=== PATIENT | male | born 1965 | race Caucasian/White ===

== ENCOUNTER 2020-12-05 15:06 | Inpatient (IN) | payer BC ==
[2020-12-05 17:09] LABS: Glucose,Whole Blood 203 mg/dL (75-99)
[2020-12-05] MEDS ORDERED: LORazepam 2 MG/ML INJ IV PRN ×3 (17:20)
[2020-12-05] MEDS ORDERED: INSULIN ASPART (NovoLOG) 100 UNIT/ML VIAL SQ SCH (17:30)
[2020-12-05] MEDS ORDERED: ACETAMINOPHEN TAB 325 MG TAB PO PRN (19:35)
[2020-12-05 20:38] LABS: Glucose,Whole Blood 193 mg/dL (75-99)
[2020-12-05] MEDS: FUROSEMIDE 10 MG/ML 4 ML VIAL IV SCH (21:14)
[2020-12-05] MEDS: HEPARIN SODIUM,PORCINE 5,000 UNIT/ML 1 ML VIAL SQ SCH (21:14)
[2020-12-05] MEDS: INSULIN ASPART (NovoLOG) 100 UNIT/ML VIAL SQ SCH (21:15)
--- NOTE | 2020-12-06 00:09 | P.HPIM ---
History of Present Illness H&P Date: 12/05/20 Chief Complaint: SOB Patient is a 55-year-old male with a known history of hypertension, diabetes type 2 currently not taking any medications., Daily alcohol use and weekly marijuana use initially presented to [facility] with the complaints of worsening shortness of breath for the past 1 week. Due to complaints of shortness of breath patient was instructed to get COVID-19 test by his workplace, which was found to be negative. Patient has been having worsening s ymptoms and presents to ER. No complaints of fever or chills. Patient does have cough without sputum production. No headache or dizziness lightheadedness. No chest pain. Patient does have increasing leg swelling. Chest x-ray showed mild cardiomegaly and findings suggestive of CHF. proBNP 46238 Troponin x1 - Lactic acid 2.8, BUN 18 and creatinine 1.0. Echocardiogram showed EF 30 to 35%. Due to new onset CHF and reduced ejection fraction patient was transferred to [facility] for further evaluation. Review of Systems Constitutional: Patient denies any fever or chills . No generalized weakness or weight loss. Abdomen: Patient denied nausea vomiting and diarrhea and abdominal pain. Cardiovascular: Patient does shortness of breath and leg swelling. No chest pain. No palpitations.. Respiratory: patient denied any cough or sputum production. No shortness of breath Neurologic: Patient denied any numbness or tingling headache. Musculoskeletal: Patient denies any complaints of joint swelling or deformity. Skin: Negative Psychiatric: Negative Endocrine: No heat or cold intolerance. No recent weight gain. Genitourinary: No dysuria or hematuria. All other 14 point ROS negative except the above Past Medical History Past Medical History: Diabetes Mellitus, Hypertension Additional Past Medical History / Comment(s): palpitations History of Any Multi-Drug Resistant Organisms: None Reported Past Surgical History: No Surgical Hx Reported Past Anesthesia/Blood Transfusion Reactions: No Reported Reaction Past Psychological History: No Psychological Hx Reported Smoking Status: Current every day smoker Past Alcohol Use History: Abuse, Daily Additional Past Alcohol Use History / Comment(s): 6-12 beers/night Past Drug Use History: Marijuana Additional Drug Use History / Comment(s): marijuan weekly - Past Family History Mother Family Medical History: No Reported History Father Family Medical History: No Reported History Medications and Allergies Home Medications Medication Instructions Recorded Confirmed Type No Known Home Medications 12/05/20 12/05/20 History Allergies Allergy/AdvReac Type Severity Reaction Status Date / Time No Known Allergies Allergy Verified 12/05/20 18:33 Physical Exam Vitals: Vital Signs Temp Pulse Resp BP Pulse Ox 12/05/20 20:00 98.1 F 88 16 145/81 94 L 12/05/20 16:55 98.4 F 89 18 142/77 95 Intake and Output 12/05/20 12/05/20 12/06/20 14:59 22:59 06:59 Other: Voiding Method Toilet Urinal Weight 72.575 kg PHYSICAL EXAMINATION: Patient is lying in the bed comfortably, no acute distress, awake alert and oriented.. HEENT: Normocephalic. Neck is supple. Pupils reactive. Nostrils clear. Oral cavity is moist. Ears reveal no drainage. Neck reveals no JVD, carotid bruits, or thyromegaly. CHEST EXAMINATION: Trachea is central. Symmetrical expansion. Bibasilar crackles. No wheezing.. CARDIAC: Normal S1, S2 with no gallops. No murmurs ABDOMEN: Soft. Bowel sounds normal. No organomegaly. No abdominal bruits. Extremities: 2+ edema. No clubbing or cyanosis Neurologically awake, alert, oriented x3 with well-coordinated movements. No focal deficits noted Skin: No rash or skin lesions. Psychiatric: Coperative. Nonsuicidal Musculoskeletal: No joint swelling or deformity. Normal range of motion. Results Labs: Abnormal Lab Results - Last 24 Hours (Table) 12/05/20 12/05/20 Range/Units 17:01 20:37 POC Glucose (mg/dL) 203 H 193 H (75-99) mg/dL Thrombosis Risk Factor Assmnt - DVT/VTE Prophylaxis DVT/VTE Prophylaxis: Pharmacologic Prophylaxis ordered - Choose All That Apply Any of the Below Risk Factors Present?: Yes Each Factor Represents 1 point: Age 41-60 years, Heart failure (<1month), Swollen legs (current) Thrombosis Risk Factor Assessment Total Risk Factor Score: 3 Thrombosis Risk Factor Assessment Level: Moderate Risk Assessment and Plan Assessment: New onset acute systolic CHF. Alcohol abuse on daily basis Lactic acidosis resolved now Hypertension currently not taking any medications at home. Diabetes type 2 diet controlled Marijuana use DVT prophylaxis Heparin subcu Plan: Patient will be continued on telemetry monitoring. Started on IV Lasix 40 mg every 12 as blood pressure tolerates. Monitor renal function. Patient will be started on aspirin and lipid profile was ordered. Follow-up renal function and A1c level. Cardiology was consulted for evaluation. Continue with thiamine and multivitamins and alcohol withdrawal protocol. Time with Patient: Greater than 30
[2020-12-06 06:13] LABS: Glucose,Whole Blood 196 mg/dL (75-99)
[2020-12-06] MEDS: THIAMINE 100 MG TAB PO SCH ×2 (06:18→17:07)
[2020-12-06] MEDS: INSULIN ASPART (NovoLOG) 100 UNIT/ML VIAL SQ SCH ×4 (06:21→20:48)
[2020-12-06 07:29] LABS: Basophils % (A) 1 %; Eosinophils # (A) 0.2 k/uL (0-0.7); Eosinophils % (A) 2 %; HCT 34.1 % (39.0-53.0); HGB 11.1 gm/dL (13.0-17.5); Hypochromasia Slight; Lymphocytes # (A) 1.3 k/uL (1.0-4.8); Lymphocytes % (A) 17 %; MCH 27.6 pg (25.0-35.0); MCHC 32.6 g/dL (31.0-37.0); MCV 84.5 fL (80.0-100.0); Mean Platelet Volume 7.1; Monocytes # (A) 0.3 k/uL (0-1.0); Monocytes % (A) 4 %; Neutrophils % (A) 76 %; Platelet Count 354 k/uL (150-450); RBC 4.04 m/uL (4.30-5.90); WBC 7.9 k/uL (3.8-10.6)
[2020-12-06 07:40] LABS: African American GFR (CKD) >90 (>60 ml/min/1.73 sqM); Anion Gap 6 mmol/L; Blood Urea Nitrogen 21 mg/dL (9-20); Calcium 9.3 mg/dL (8.4-10.2); Carbon Dioxide 26 mmol/L (22-30); Chloride 107 mmol/L (98-107); Glucose 163 mg/dL (74-99); Non-African American GFR(CKD) 86 (>60 ml/min/1.73 sqM); Potassium 3.9 mmol/L (3.5-5.1); Sodium 139 mmol/L (137-145)
--- NOTE | 2020-12-06 07:50 | XR ---
EXAMINATION TYPE: XR chest 1V DATE OF EXAM: 12/06/2020 COMPARISON: NONE HISTORY: Congestive heart failure, shortness breath TECHNIQUE: Single frontal view of the chest is obtained. FINDINGS: Patient is rotated. Bibasilar increased attenuation is present, hemidiaphragms are obscure d. Heart size may be accentuated by rotation. No pneumothorax. Blunting the costophrenic angles. Inte rstitium is increased. IMPRESSION: Correlate for congestive heart failure and basilar effusions. Pneumonia not excluded. Fo llow-up recommended.
[2020-12-06 08:19] VITALS: RESP 18
[2020-12-06] MEDS: HEPARIN SODIUM,PORCINE 5,000 UNIT/ML 1 ML VIAL SQ SCH ×2 (08:19→19:47)
[2020-12-06] MEDS: FUROSEMIDE 10 MG/ML 4 ML VIAL IV SCH ×2 (08:19→19:47)
[2020-12-06] MEDS: ASPIRIN 81 MG PO SCH (08:19)
[2020-12-06 10:14] LABS: Cholesterol 164 mg/dL (<200); HDL Cholesterol 30 mg/dL (40-60); LDL Cholesterol,Calculated 110 mg/dL (0-99); Triglycerides 120 mg/dL (<150)
[2020-12-06] MEDS: LOSARTAN 25 MG TAB PO SCH (11:07)
[2020-12-06] MEDS: ATORVASTATIN 40 MG TAB PO SCH (11:07)
[2020-12-06] MEDS: METOPROLOL SUCCINATE (ER) 25 MG TAB.ER.24H PO SCH (11:07)
[2020-12-06 12:01] LABS: Glucose,Whole Blood 188 mg/dL (75-99)
--- NOTE | 2020-12-06 12:08 | P.CRDCN ---
History of Present Illness History of present illness: HISTORY OF PRESENTING ILLNESS This is a pleasant 55-year-old male past medical history significant for chronic nicotine dependence, daily excessive alcohol intake and marijuana use. 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 He follows with a primary care physician but states he hasn't seen recently. In the past he has been diagnosed with hypertension and diabetes however is not currently taking any medications. We have been asked to see in consultation for heart failure. He states for the previous one week he has been experiencing shortness of breath, orthopnea and PND. He has been unable to work or maintain his activities of daily living. She initially presented to [facility] where he underwent an echocardiogram revealing impaired LV systolic function with global LV hypokinesia with ejection fraction of 35-40%, severe mitral regurgitation, moderate tricuspid regurgitation and small pericardial effusion. He was initiated on IV diuretics and transferred here for further cardiac evaluation. DIAGNOSTICS EKG reveals sinus mechanism with PVCs flat T-wave in the high lateral leads and T-wave inversions anterior laterally. Telemetry tracings indicate this mechanism with no acute arrhythmias noted. Chest xray basilar effusions with blunting of the costophrenic angles and increased interstitium. Laboratory reviewed, WBC 7.9, hemoglobin 11.1, platelets 354, sodium 139, potassium 3.9, creatinine 0.99, troponin 0.33, NT proBNP 12,200, LDL 110 and HDL 30. He takes no daily medications. REVIEW OF SYSTEMS At the time of my exam: CONSTITUTIONAL: Denies fever or chills. CARDIOVASCULAR: Complains of shortness of breath, orthopnea and PND. Denies chest pain or palpitations. RESPIRATORY: Denies cough. GASTROINTESTINAL: Denies abdominal pain, diarrhea, constipation, nausea or vomiting. MUSCULOSKELETAL: Denies myalgias. NEUROLOGIC: Denies numbness, tingling, headacbe or weakness. ENDOCRINE: Denies fatigue, weight change, polydipsia or polyurina. GENITOURINARY: Denies burning, hematuria or urgency with micturation. HEMATOLOGIC: Denies history of anemia or bleeding. PHYSICAL EXAMINATION Blood pressure 121/83 heart rate 88 afebrile and maintaining oxygen saturation on room air. CONSTITUTIONAL: No apparent distress. Appears older than stated age. HEENT: Head is normocephalic. Pupils are equal, round. Sclerae anicteric. Mucous membranes of the mouth are moist. No JVD. No carotid bruit. CHEST EXAMINATION: Lungs are clear to auscultation. No chest wall tenderness is noted on palpation or with deep breathing. Diminished bilaterally. HEART EXAMINATION: Regular rate and rhythm. S1, S2 heard. Systolic ejection murmur at the base, no gallops or rub. ABDOMEN: Soft, nontender. Positive bowel sounds. EXTREMITIES: 2+ peripheral pulses, no lower extremity edema and no calf tender ness. NEUROLOGIC EXAMINATION: Patient is awake, alert and oriented x3. ASSESSMENT Acute systolic heart failure Hypertension Dyslipidemia Daily excessive alcohol intake Chronic nicotine dependence PLAN Continue IV diuresis. Document accurate intake and output along with daily weights. Follow renal function and electrolytes in the morning. Initiate atorvastatin 40 mg daily, losartan 25 mg daily and Toprol 25 mg daily. Continue aspirin 81 mg daily. At some point the patient will require cardiac catheterization to assess for underlying coronary artery disease. This can be scheduled as an outpatient once his breathing status is optimized. Further recommendations to follow based upon clinical course. Alcohol and smoking cessation recommended. Thank you kindly for this consultation. Nurse Practitioner note has been reviewed, I agree with a documented findings and plan of care. Patient was seen and examined. Past Medical History Past Medical History: Diabetes Mellitus, Hypertension Additional Past Medical History / Comment(s): palpitations History of Any Multi-Drug Resistant Organisms: None Reported Past Surgical History: No Surgical Hx Reported Past Anesthesia/Blood Transfusion Reactions: No Reported Reaction Past Psychological History: No Psychological Hx Reported Smoking Status: Current every day smoker Past Alcohol Use History: Abuse, Daily Additional Past Alcohol Use History / Comment(s): 6-12 beers/night Past Drug Use History: Marijuana Additional Drug Use History / Comment(s): marijuan weekly - Past Family History Mother Family Medical History: No Reported History Father Family Medical History: No Reported History Medications and Allergies Home Medications Medication Instructions Recorded Confirmed Type No Known Home Medications 12/05/20 12/05/20 History Allergies Allergy/AdvReac Type Severity Reaction Status Date / Time No Known Allergies Allergy Verified 12/05/20 18:33 Physical Exam Vitals: Vital Signs Temp Pulse Resp BP Pulse Ox 12/06/20 08:16 98.2 F 88 18 121/83 96 12/06/20 04:00 98.1 F 85 16 146/71 96 12/06/20 00:00 98.2 F 82 18 128/79 95 12/05/20 20:00 98.1 F 88 16 145/81 94 L 12/05/20 16:55 98.4 F 89 18 142/77 95 Intake and Output 12/05/20 12/06/20 12/06/20 22:59 06:59 14:59 Output Total 1300 Balance -1300 Output: Urine 1300 Other: Voiding Method Toilet Toilet Urinal # Voids 1 Weight 72.575 kg 79 kg Results 12/06/20 07:07 12/06/20 07:07 Cardiac Enzymes 12/06/20 Range/Units 07:07 Troponin I 0.033 (0.000-0.034) ng/mL CBC 12/06/20 Range/Units 07:07 WBC 7.9 (3.8-10.6) k/uL RBC 4.04 L (4.30-5.90) m/uL Hgb 11.1 L (13.0-17.5) gm/dL Hct 34.1 L (39.0-53.0) % Plt Count 354 (150-450) k/uL Comprehensive Metabolic Panel 12/06/20 Range/Units 07:07 Sodium 139 (137-145) mmol/L Potassium 3.9 (3.5-5.1) mmol/L Chloride 107 (98-107) mmol/L Carbon Dioxide 26 (22-30) mmol/L BUN 21 H (9-20) mg/dL Creatinine 0.99 (0.66-1.25) mg/dL Glucose 163 H (74-99) mg/dL Calcium 9.3 (8.4-10.2) mg/dL Current Medications Generic Name Dose Route Start Last Admin Trade Name Freq PRN Reason Stop Dose Admin Acetaminophen 650 mg 12/05/20 19:35 12/05/20 21:16 Acetaminophen Tab 325 Mg Tab PO 650 mg Q6HR PRN Administration Fever and/ or Mild Pain Aspirin 81 mg 12/06/20 09:00 12/06/20 08:19 Aspirin 81 Mg PO 81 mg DAILY KIYA Administration Furosemide 40 mg 12/05/20 21:00 12/06/20 08:19 Furosemide 10 Mg/Ml 4 Ml Vial IV 40 mg Q12HR KIYA Administration Heparin Sodium (Porcine) 5,000 unit 12/05/20 21:00 12/06/20 08:19 Heparin Sodium,Porcine 5,000 Unit/Ml 1 Ml Vial SQ 5,000 unit Q12HR KIYA Administration Insulin Aspart 0 unit 12/05/20 21:00 12/06/20 06:21 Insulin Aspart (Novolog) 100 Unit/Ml Vial SQ 2 unit ACHS KIYA Administration Protocol Lorazepam 1 mg 12/05/20 17:20 Lorazepam 2 Mg/Ml Inj IV Q2HR PRN CIWA 8 or 9 Lorazepam 1 mg 12/05/20 17:20 Lorazepam 2 Mg/Ml Inj IV Q1HR PRN CIWA 10 to 15 Lorazepam 2 mg 12/05/20 17:20 Lorazepam 2 Mg/Ml Inj IV 12/07/20 17:21 Q10M PRN CIWA 16 or higher Thiamine HCl 100 mg 12/06/20 07:30 12/06/20 06:18 Thiamine 100 Mg Tab PO 100 mg BID-W/MEALS KIYA Administration Intake and Output 12/05/20 12/06/20 12/06/20 22:59 06:59 14:59 Output Total 1300 Balance -1300 Output: Urine 1300 Other: Voiding Method Toilet Toilet Urinal # Voids 1 Weight 72.575 kg 79 kg 12/06/20 07:07 12/06/20 07:07
[2020-12-06 14:27] LABS: Hemoglobin A1C 7.3 % (4.0-6.0)
[2020-12-06 17:04] LABS: Glucose,Whole Blood 243 mg/dL (75-99)
[2020-12-06 20:44] LABS: Glucose,Whole Blood 175 mg/dL (75-99)
[2020-12-07 06:12] LABS: Glucose,Whole Blood 224 mg/dL (75-99)
[2020-12-07] MEDS: INSULIN ASPART (NovoLOG) 100 UNIT/ML VIAL SQ SCH ×2 (06:19→12:10)
[2020-12-07] MEDS: THIAMINE 100 MG TAB PO SCH (06:19)
[2020-12-07] MEDS: ATORVASTATIN 40 MG TAB PO SCH (08:49)
[2020-12-07] MEDS: ASPIRIN 81 MG PO SCH (08:49)
[2020-12-07] MEDS: LOSARTAN 25 MG TAB PO SCH (08:49)
[2020-12-07] MEDS: METOPROLOL SUCCINATE (ER) 25 MG TAB.ER.24H PO SCH (08:49)
[2020-12-07] MEDS: FUROSEMIDE 10 MG/ML 4 ML VIAL IV SCH (08:50)
[2020-12-07] MEDS: HEPARIN SODIUM,PORCINE 5,000 UNIT/ML 1 ML VIAL SQ SCH (08:50)
--- NOTE | 2020-12-07 10:50 | P.PN ---
Subjective Progress Note Date: 12/06/20 Principal diagnosis: New onset acute CHF Patient is a 55-year-old male with a known history of hypertension, diabetes type 2 currently not taking any medications., Daily alcohol use and weekly marijuana use initially presented to [facility] with the complaints of worsening shortness of breath for the past 1 week. Due to complaints of shortness of breath patient was instructed to get COVID-19 test by his workplace, which was found to be negative. Patient has been having worsening symptoms and presents to ER. No complaints of fever or chills. Patient does have cough without sputum production. No headache or dizziness lightheadedness. No chest pain. Patient does have increasing leg swelling. Chest x-ray showed mild cardiomegaly and findings suggestive of CHF. proBNP 68491 Troponin x1 - Lactic acid 2.8, BUN 18 and creatinine 1.0. Echocardiogram showed EF 30 to 35%. Due to new onset CHF and reduced ejection fraction patient was transferred to [facility] for further evaluation. 12/06/2020 Patient says that his breathing is better today. Currently being continued on IV Lasix and metoprolol, NILS inhibitor as were ordered. Cardiology is on board. 2-D echocardiogram report is pending. Otherwise patient is afebrile. Improved orthopnea. Patient is being monitored for alcohol withdrawal symptoms. A1c level is 7.3 and will be continued on sliding scale. Current medications reviewed. Objective - Vital Signs Vital signs: Vital Signs Temp 97.7 F 12/06/20 20:00 Pulse 86 12/06/20 20:00 Resp 18 12/06/20 20:00 BP 131/79 12/06/20 20:00 Pulse Ox 98 12/06/20 20:00 Intake & Output 12/06/20 12/06/20 12/07/20 06:59 18:59 06:59 Intake Total 486 475 Output Total 1300 1000 Balance -1300 486 -525 Weight 79 kg Intake: Oral 486 475 Output: Urine 1300 1000 Other: Voiding Method Toilet Toilet Toilet # Voids 1 - Exam PHYSICAL EXAMINATION: Patient is lying in the bed comfortably, no acute distress, awake alert and oriented.. HEENT: Normocephalic. Neck is supple. Pupils reactive. Nostrils clear. Oral cavity is moist. Ears reveal no drainage. Neck reveals no JVD, carotid bruits, or thyromegaly. CHEST EXAMINATION: Trachea is central. Symmetrical expansion. Bibasilar minimal crackles. No wheezing. Lung romeo clear to auscultation and percussion. CARDIAC: Normal S1, S2 with no gallops. No murmurs ABDOMEN: Soft. Bowel sounds normal. No organomegaly. No abdominal bruits. Extremities: reveal no edema. No clubbing or cyanosis Neurologically awake, alert, oriented x3 with well-coordinated movements. No focal deficits noted Skin: No rash or skin lesions. Psychiatric: Coperative. Nonsuicidal Musculoskeletal: No joint swelling or deformity. Normal range of motion. - Labs CBC & Chem 7: 12/06/20 07:07 12/06/20 07:07 Labs: Abnormal Lab Results - Last 24 Hours (Table) 12/06/20 12/06/20 12/06/20 Range/Units 06:12 07:07 07:07 RBC 4.04 L (4.30-5.90) m/uL Hgb 11.1 L (13.0-17.5) gm/dL Hct 34.1 L (39.0-53.0) % BUN 21 H (9-20) mg/dL Glucose 163 H (74-99) mg/dL POC Glucose (mg/dL) 196 H (75-99) mg/dL Hemoglobin A1c (4.0-6.0) % LDL Cholesterol, Calc (0-99) mg/dL HDL Cholesterol (40-60) mg/dL 12/06/20 12/06/20 12/06/20 Range/Units 07:07 07:07 11:52 RBC (4.30-5.90) m/uL Hgb (13.0-17.5) gm/dL Hct (39.0-53.0) % BUN (9-20) mg/dL Glucose (74-99) mg/dL POC Glucose (mg/dL) 188 H (75-99) mg/dL Hemoglobin A1c 7.3 H (4.0-6.0) % LDL Cholesterol, Calc 110 H (0-99) mg/dL HDL Cholesterol 30 L (40-60) mg/dL 12/06/20 12/06/20 Range/Units 16:52 20:42 RBC (4.30-5.90) m/uL Hgb (13.0-17.5) gm/dL Hct (39.0-53.0) % BUN (9-20) mg/dL Glucose (74-99) mg/dL POC Glucose (mg/dL) 243 H 175 H (75-99) mg/dL Hemoglobin A1c (4.0-6.0) % LDL Cholesterol, Calc (0-99) mg/dL HDL Cholesterol (40-60) mg/dL Assessment and Plan Assessment: New onset acute systolic CHF. Alcohol abuse on daily basis Lactic acidosis resolved now Hypertension currently not taking any medications at home. Diabetes type 2 diet controlled A1c 7.3 Marijuana use DVT prophylaxis Heparin subcu Plan: Patient will be continued on telemetry monitoring. Started on IV Lasix 40 mg every 12 as blood pressure tolerates. Monitor renal function. Beta blockers and nils inhibitors were added. Patient was started on aspirin and lipid profile showed LDL 110. Follow-up renal function.. Cardiology is following.. Continue with thiamine and multivitamins and alcohol withdrawal protocol. Time with Patient: Greater than 30
[2020-12-07 11:41] VITALS: BP 127/74; PULSE 81; TEMP 98.3
[2020-12-07 11:43] LABS: Calcium 9.2 mg/dL (8.4-10.2); Potassium 4.1 mmol/L (3.5-5.1)
[2020-12-07 11:58] LABS: Glucose,Whole Blood 177 mg/dL (75-99)
[2020-12-07] MEDS ORDERED: LOSARTAN 25 MG TAB PO STA (12:56)
[2020-12-07] MEDS ORDERED: METOPROLOL SUCCINATE (ER) 25 MG TAB.ER.24H PO STA (12:57)
--- NOTE | 2020-12-07 12:59 | P.PN ---
Subjective HISTORY OF PRESENTING ILLNESS This is a pleasant 55-year-old male past medical history significant for chronic nicotine dependence, daily excessive alcohol intake and marijuana use. 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 He is seen and examined sitting up in bed in no acute distress. Overall he doesn't feel as though his breathing has improved very much. He denies symptoms of chest pain, dizziness or palpitations. 24- hour urine output is 2000 mL. Blood pressure 141/76 heart rate 84 afebrile maintaining oxygen saturation on room air. PHYSICAL EXAMINATION CONSTITUTIONAL: No apparent distress. Appears older than stated age. HEENT: Head is normocephalic. Pupils are equal, round. Sclerae anicteric. Mucous membranes of the mouth are moist. No JVD. No carotid bruit. CHEST EXAMINATION: Lungs are clear to auscultation. No chest wall tenderness is noted on palpation or with deep breathing. Diminished bilaterally. HEART EXAMINATION: Regular rate and rhythm. S1, S2 heard. Systolic ejection murmur at the base, no gallops or rub. EXTREMITIES: 2+ peripheral pulses, no lower extremity edema and no calf tenderness. ASSESSMENT Acute systolic heart failure Hypertension Dyslipidemia Daily excessive alcohol intake Chronic nicotine dependence PLAN Transition to oral diuretics 40 mg by mouth twice a day, increase losartan to 50 mg daily and Toprol to 50 mg daily. Add small dose of Aldactone 12.5 mg daily. Patient will require cardiac catheterization at some point. This can be scheduled as an outpatient. Nurse Practitioner note has been reviewed, I agree with a documented findings and plan of care. Patient was seen and examined. Objective - Vital Signs Vital signs: Vital Signs Temp 98.0 F 12/07/20 08:47 Pulse 84 12/07/20 08:47 Resp 18 12/07/20 08:47 BP 141/76 12/07/20 08:47 Pulse Ox 97 12/07/20 08:47 Intake & Output 12/06/20 12/07/20 12/07/20 18:59 06:59 18:59 Intake Total 486 475 180 Output Total 1999 Balance 494 -8348 180 Weight 73.1 kg Intake: Oral 486 475 180 Output: Urine 1999 Other: Voiding Method Toilet Toilet Toilet # Voids 2 1 # Bowel Movements 0 - Labs CBC & Chem 7: 12/06/20 07:07 12/07/20 11:05 Labs: Abnormal Lab Results - Last 24 Hours (Table) 12/06/20 12/06/20 12/06/20 Range/Units 07:07 11:52 16:52 POC Glucose (mg/dL) 188 H 243 H (75-99) mg/dL Hemoglobin A1c 7.3 H (4.0-6.0) % 12/06/20 12/07/20 Range/Units 20:42 06:10 POC Glucose (mg/dL) 175 H 224 H (75-99) mg/dL Hemoglobin A1c (4.0-6.0) %
[2020-12-07] MEDS ORDERED: SPIRONOLACTONE 25 MG TAB PO SCH (13:00)
[2020-12-07] MEDS ORDERED: FUROSEMIDE 40 MG TAB PO SCH (16:00)
[2020-12-08] MEDS ORDERED: LOSARTAN 50 MG TAB PO SCH (09:00)
[2020-12-08] MEDS ORDERED: METOPROLOL SUCCINATE (ER) 50 MG TAB.ER.24H PO SCH (09:00)
== END 2020-12-07 16:06 | disposition home or self-care (01) | DRG 291 ==
LOC: 3SCARD 16:54
PROVIDERS: ADMIT Internal Medicine; ATTEND Internal Medicine
DX: I11.0 Hypertensive heart disease with heart failure (principal); I50.21 Acute systolic (congestive) heart failure; I31.3 Pericardial effusion (noninflammatory); E87.2 Acidosis; I49.3 Ventricular premature depolarization; F17.200 Nicotine dependence, unspecified, uncomplicated; I08.1 Rheumatic disorders of both mitral and tricuspid valves; F12.90 Cannabis use, unspecified, uncomplicated; F10.10 Alcohol abuse, uncomplicated; E78.5 Hyperlipidemia, unspecified; E11.9 Type 2 diabetes mellitus without complications
CPT/HCPCS: 71045; 80048; 80061; 83036; 83605; 83880; 84484; 85025

== ENCOUNTER → 2020-12-23 | Outpatient (CLI) | payer BC ==
--- NOTE | 2020-12-23 11:38 | CT ---
EXAMINATION TYPE: CT chest abdomen w con DATE OF EXAM: 12/23/2020 COMPARISON: None HISTORY: Left renal mass; Staging for renal cancer CT DLP: 914 mGycm, Automated exposure control for dose reduction was used. CONTRAST: Performed injected with 50 ml mL of Isovue 300. TECHNIQUE: Axial images were obtained at 5 mm thick sections. Reconstructed images are reviewed on [facility] computer in the coronal plane. FINDINGS: CT CHEST: Portion of the thyroid visualized is normal. No suspicious lung nodules or focal infiltrates are present. No enlarged mediastinal or hilar adenopathy is evident. The ascending aorta diameter at the level o f the main pulmonary artery is 3.4 cm. The main pulmonary artery diameter at the bifurcation is 2.9 cm. There is a small hiatal hernia. CT abdomen: Liver and spleen and normal density without discrete masses or cysts. The gallbladder is unremarkable . Abdominal aorta and inferior vena cava are normal. There is no contrast in the distal inferior vena cava which limits evaluation for thrombus. Renal vein thrombus extending approximately 3.2 cm from t he hilum appears to be present. There is some asymmetry of the contrast excretion on the left compare d to the right. Pancreas is normal. The adrenal glands are normal. Gallbladder is unremarkable. Loops of bowel with o ral contrast appear unremarkable. Fecal debris is within the colon. Right kidney is normal without ma sses cysts or hydronephrosis. No suspicious lytic or sclerotic lesions are evident. No expansile lesi ons within the osseous structures are evident. Inferior pole left renal mass is evident estimated to measure 9.3 x 8.4 cm in size. IMPRESSIONS: 1. 9.3 x 8.4 cm inferior pole left renal mass compatible with patient's renal cell carcinoma. 2. There appears to be thrombus within the left renal vein extending approximately 3.2 cm from the re nal hilum. This does not appear to cross the midline. 3. No suspicious changes to suggest distal metastatic lesions.
--- NOTE | 2020-12-23 14:19 | NM ---
EXAMINATION TYPE: NM bone scan whole body DATE OF EXAM: 12/23/2020 COMPARISON: NONE HISTORY: D41.02 L renal mass Delayed whole-body scanning was performed following the injection of 25 mCi Tc 99m MDP. Images acqui red 4 hours post injection. FINDINGS: No evidence for intense radiotracer accumulation throughout the visualized axial and appendicular ske leton. IMPRESSION: No scintigraphic evidence to suggest metastatic disease to the osseous structures at this time.
== END | disposition home or self-care (01) ==
LOC: RADCTMAIN 08:34
PROVIDERS: ATTEND Urology
DX: C64.2 Malignant neoplasm of left kidney, except renal pelvis (principal); D41.02 Neoplasm of uncertain behavior of left kidney
CPT/HCPCS: 82565; 84520; 71260; 74160; 36415; 78306; A9503; Q9967

== ENCOUNTER → 2021-01-07 | Outpatient (CLI) | payer BC ==
[2021-01-07 14:18] LABS: ALT 15 U/L (4-49); AST 12 U/L (17-59); African American GFR (CKD) >90 (>60 ml/min/1.73 sqM); Albumin 3.5 g/dL (3.5-5.0); Alkaline Phosphatase 130 U/L (38-126); Anion Gap 9 mmol/L; Blood Urea Nitrogen 16 mg/dL (9-20); Calcium 9.1 mg/dL (8.4-10.2); Carbon Dioxide 24 mmol/L (22-30); Chloride 102 mmol/L (98-107); Glucose 359 mg/dL (74-99); Non-African American GFR(CKD) 85 (>60 ml/min/1.73 sqM); Potassium 4.8 mmol/L (3.5-5.1); Sodium 135 mmol/L (137-145); Total Bilirubin 0.3 mg/dL (0.2-1.3); Total Protein 6.4 g/dL (6.3-8.2)
[2021-01-07 14:29] LABS: Anisocytosis Slight; Basophils % (A) 0 %; Eosinophils # (A) 0.2 k/uL (0-0.7); Eosinophils % (A) 2 %; HCT 29.7 % (39.0-53.0); HGB 9.7 gm/dL (13.0-17.5); Lymphocytes # (A) 1.2 k/uL (1.0-4.8); Lymphocytes % (A) 15 %; MCH 28.3 pg (25.0-35.0); MCHC 32.6 g/dL (31.0-37.0); MCV 86.6 fL (80.0-100.0); Mean Platelet Volume 7.2; Monocytes # (A) 0.4 k/uL (0-1.0); Monocytes % (A) 5 %; Neutrophils # (A) 5.9 k/uL (1.3-7.7); Neutrophils % (A) 77 %; Platelet Count 277 k/uL (150-450); RBC 3.43 m/uL (4.30-5.90); RDW 16.3 % (11.5-15.5); WBC 7.8 k/uL (3.8-10.6)
[2021-01-07 14:43] LABS: Appearance,Urine Clear (Clear); Bilirubin,Urine Negative (Negative); Blood,Urine Moderate (Negative); Color,Urine Light Yellow; Glucose,Urine (UA) 4+ (Negative); Hyaline Casts,Urine 1 /lpf (0-2); Ketones,Urine Negative (Negative); Leukocyte Esterase,Urine Small (Negative); Mucus,Urine Rare /hpf; Nitrite,Urine Negative (Negative); Protein,Urine 1+ (Negative); RBC,Urine 72 /hpf (0-5); Specific Gravity,Urine 1.016 (1.001-1.035); Squamous Epithelial Cell,Urine <1 /hpf (0-4); Urobilinogen,Urine <2.0 mg/dL (<2.0); WBC,Urine 20 /hpf (0-5)
== END | disposition home or self-care (01) ==
LOC: LABPAT 12:42
PROVIDERS: ATTEND Urology
DX: Z01.818 Encounter for other preprocedural examination (principal); E11.9 Type 2 diabetes mellitus without complications; D41.02 Neoplasm of uncertain behavior of left kidney; R31.29 Other microscopic hematuria
CPT/HCPCS: 36415; 80053; 81001; 85025; 87086

== ENCOUNTER 2021-01-14 13:00 | Inpatient (IN) | payer BC ==
[2021-01-12 10:31] VITALS: BMI 22.4
--- NOTE | 2021-01-27 18:44 | P.GSHP ---
History of Present Illness H&P Date: 01/27/21 55 yo male who had hematuria and year ago. He had a ct scan then and was told to see a urologist but never did. He had gross hematuria recently. Repeat ct scan shows a 9 cm mass in the left kidney. THere may be regional adenopathy. He underwent a metastatic w/u that was negative. There appears to be tumor in the left renalvein but the cava is clear. He comes for a left radical nephrectomy The risks complications and alternatives have been discussed. - Constitutional Constitutional: Denies chills, Denies fever - EENT Eyes: denies blurred vision, denies pain Ears, nose, mouth and throat: Denies headache, Denies sore throat - Cardiovascular Cardiovascular: Denies chest pain, Denies shortness of breath - Respiratory Respiratory: Denies cough, Denies 7 - Gastrointestinal Gastrointestinal: Denies abdominal pain, Denies diarrhea, Denies nausea, Denies vomiting - Genitourinary (Female) Genitourinary: Denies dysuria, Denies hematuria - Genitourinary (Male) Genitourinary: Denies dysuria, Denies hematuria - Musculoskeletal Musculoskeletal: Denies myalgias - Integumentary Integumentary: Denies pruritus, Denies rash - Neurological Neurological: Denies numbness, Denies weakness - Psychiatric Psychiatric: Denies anxiety, Denies depression - Endocrine Endocrine: Denies fatigue, Denies weight change Past Medical History Past Medical History: Heart Failure, Diabetes Mellitus, GERD/Reflux, Hypertension Additional Past Medical History / Comment(s): palpitations, hx migraines, hx kidney stones. left kidney cancer, "had black uriine Nov 2020", had blood in urine 01/18/21. (none currently) History of Any Multi-Drug Resistant Organisms: None Reported Past Surgical History: No Surgical Hx Reported Past Anesthesia/Blood Transfusion Reactions: No Reported Reaction Additional Past Anesthesia/Blood Transfusion Reaction / Comment(s): never had anesthesia Smoking Status: Current every day smoker - Past Family History Mother Family Medical History: No Reported History Father Family Medical History: No Reported History Medications and Allergies Home Medications Medication Instructions Recorded Confirmed Type Furosemide [Lasix] 40 mg PO BID@0900,1600 #60 tab 12/07/20 01/23/21 Rx Aspirin 81 mg PO W/SUPPER 01/12/21 01/23/21 History Atorvastatin [Lipitor] 40 mg PO W/SUPPER 01/12/21 01/23/21 History Losartan [Cozaar] 50 mg PO W/SUPPER 01/12/21 01/23/21 History Metoprolol Succinate (ER) [Toprol 50 mg PO W/SUPPER 01/12/21 01/23/21 History XL] Spironolactone [Aldactone] 12.5 mg PO W/SUPPER 01/12/21 01/23/21 History metFORMIN HCL [Glucophage Xr] 500 mg PO W/SUPPER 01/12/21 01/23/21 History Allergies Allergy/AdvReac Type Severity Reaction Status Date / Time No Known Allergies Allergy Verified 01/12/21 10:16 Surgical - Exam - General well developed, well nourished, no distress - Eyes PERRL - ENT no hearing loss - Neck no masses, trachea midline - Respiratory normal expansion, normal respiratory effort - Cardiovascular Rhythm: regular - Abdomen Abdomen: soft, non tender - Genitourinary normal penis with no external lesions, testicles present - Integumentary no rash, no growths - Neurologic normal coordination, normal sensation - Musculoskeletal normal gait, normal posture - Psychiatric oriented to time, oriented to person, oriented to place, speech is normal, memory intact Results - Imaging CT scan - abdomen: report reviewed, image reviewed CT scan - pelvis: report reviewed, image reviewed Assessment and Plan Assessment: Impression: Left renal cell carcinoma. MUltiple medical illnesses Plan: Left radical nephrectomy
[2021-01-28] MEDS ORDERED: LIDOCAINE 1% (10MG/ML) FOR IV START INTRADERMA PRN (05:45)
[2021-01-28] MEDS ORDERED: ONDANSETRON 4 MG/2 ML VIAL IVP ONE ×2 (05:45→12:50)
[2021-01-28] MEDS ORDERED: HYDROmorphone 0.5 MG/0.5 ML SYRINGE IVP PRN (05:45)
[2021-01-28] MEDS ORDERED: DEXAMETHASONE SOD PHOSPHATE 4 MG/ML 1 ML VIAL IV ONE (05:45)
[2021-01-28] MEDS ORDERED: MIDAZOLAM 2 MG/2 ML VIAL IV PRN (07:00)
[2021-01-28] MEDS ORDERED: fentaNYL (PF) 50 MCG/ML 2 ML AMP IVP PRN (07:00)
[2021-01-28 08:58] LABS: Glucose,Whole Blood 200 mg/dL (75-99)
[2021-01-28] MEDS: LACTATED RINGERS 1,000 ML IV SCH ×2 (08:58→19:12)
[2021-01-28] MEDS ORDERED: NALOXONE 0.4 MG/ML 1 ML VIAL IV PRN (09:50)
[2021-01-28] MEDS ORDERED: ROPIVACAINE 250 MG, HYDROMORPHONE (PF) 5 MG in SODIUM CHLORIDE 0.9% 200 ML EPIDURAL PRN (09:50)
[2021-01-28] MEDS ORDERED: diphenhydrAMINE 50 MG/ML 1 ML VIAL IVP PRN (09:50)
--- NOTE | 2021-01-28 09:53 | P.ANPRN ---
Procedure Note - Anesthesia - Epidural/Spinal Epidural Continuous Time Out Performed: Yes Date of Procedure: 01/28/21 Procedure Start Time: : Procedure Stop Time: : Location of Patient: PreOp Indication: Requested by Surgeon Sedation Type: Sedate with meaningful contact maintained Preparation: Sterile Dressing Position: Sitting Catheter: Indwelling Needle Guage: 18 Injectate: Test Dose Lidocaine1.5% w/1:200,000 epi Blood Aspirated: No Pain Paresthesia on Injection Noted: No Events: Uneventful and Well Tolerated
[2021-01-28] MEDS ORDERED: GLYCOPYRROLATE 0.2 MG/ML 2 ML VIAL ONE (09:58)
[2021-01-28] MEDS ORDERED: SUCCINYLCHOLINE CHLORIDE 100 MG/5 ML SYR IV ONE (09:58)
[2021-01-28] MEDS ORDERED: ROCURONIUM 10 MG/ML (5 ML VIAL) IV ONE (09:58)
[2021-01-28] MEDS ORDERED: NEOSTIGMINE 1 MG/ML 10 ML VIAL ONE (09:58)
[2021-01-28] MEDS ORDERED: fentaNYL (PF) 50 MCG/ML 2 ML AMP ONE (09:58)
[2021-01-28] MEDS ORDERED: PROPOFOL 10 MG/ML 20 ML VIAL IV ONE (09:58)
[2021-01-28] MEDS ORDERED: MIDAZOLAM 2 MG/2 ML VIAL ONE (09:58)
[2021-01-28] MEDS ORDERED: LIDOCAINE 1% INJ 10MG/ML (20 ML MDV) ONE (09:58)
[2021-01-28] MEDS ORDERED: LACTATED RINGERS 1,000 ML IV ONE ×2 (10:06→13:08)
[2021-01-28] MEDS ORDERED: GELATIN SPONGE,ABSORB (LARGE) 1 EACH SPONGE TOPICAL ONE (12:20)
[2021-01-28] MEDS ORDERED: diphenhydrAMINE 50 MG/ML 1 ML VIAL IVP ONE (13:00)
--- NOTE | 2021-01-28 13:01 | P.OP ---
Date of Procedure: 01/28/21 Preoperative Diagnosis: Left renal cell carcinoma Postoperative Diagnosis: Same Procedure(s) Performed: Left radical nephrectomy with kalyn aortic lymphadenectomy, cystoscopy Anesthesia: GETA, epidural Surgeon: Milind Marshall Field Service Technician Poultry #1: Maykel Ziegler Estimated Blood Loss (ml): 600 Pathology: other (Kidney, lymph nodes) Condition: stable Disposition: PACU Indications for Procedure: The patient is 55. He presented with an mass in the left kidney after gross hematuria. He actually had this year ago but did not follow as his local emergency room to seek urologic care. Computed tomography scan shows a 9-10 cm left renal mass partially invading the left renal vein but not the vena cava and enlarged periaortic lymph nodes. He had a negative metastatic workup. He comes for left radical nephrectomy Description of Procedure: The patient is brought to the operating suite. He is given a general anesthesia. He first undergo cystoscopy after general prep. The flexible cystoscope was introduced into the urethra is normal the prostate is not obstructing the bladder is completely inspected and is normal. The purpose of the cystoscopy is because of recurrent gross hematuria. The patient is then prepped and draped sterilely. A left subcostal incision is made. I dissect through the oblique and the peritoneum was opened. The liver is palpated and is normal. The palpable mass in the kidney is identified. The kidney is somewhat fixed. I tediously dissect the colon off to Road's fascia incising the ureter peritoneum laterally and then moving the colon completely off drug's and retracted medially. I then tried to dissect the drug's off the peritoneum at the level of the spleen but it is quite stuck. The left lateral wall is also stuck up. I move medially after using appropriate retraction with the Bookwalter retractor. I eventually identify the gonadal vein and in the left renal vein. I palpate the renal vein and there is no tumor in the midportion seen. Place a 2-0 silk around the left renal vein. Deep and posterior to the left renal vein I eventually identify the left renal artery. A 2-0 silk ties placed around it and tied to stop the inflow the blood into the kidney. I then the left renal vein proximally and distally with 2-0 silk ties 2 on each side. I transect the renal vein. I then moved down to the renal artery and placed 2 more ties on the renal artery on the aortic side and transected between the 2 ties and the tie on the kidney side. I then March inferiorly taking lymph courtney tissue with me using hemoclips to deflected the Gerota's fascia off the psoas muscle. Moved inferiorly there are a lot of very dilated veins are taken between hemoclips. The ureters eventually identified and taken between clips as is the gonadal vein. Elevate the drug's off the posterior body wall and psoas muscle however it is quite adherent and perhaps infiltrative as free drug's off the posterior body wall lining anterior in the muscle. I moved superiorly above the left renal vein. Identify the adrenal and it is palpably normal therefore I elected to spare this up. His hemoclips and go beneath the adrenal vessels. Prior to this side tied the left adrenal vein. I then slowly dissected the drug's fascia off the peritoneum and free the kidney up completely and delivered from the wound. I then packed the upper abdomen. I then do lymph node dissections using hemoclips to dissect the left periaortic and into her aortic lymph node tissue off the aorta. I then inspect the adrenal gland and there is no active bleeding. I inspect the spleen and there is no significant bleeding. There is some bleeding noted on the posterior bladder wall were the tumor perhaps penetrated and the psoas. This was controlled electrocautery and hemoclips. I irrigate thoroughly. There is no active bleeding. I closed the wound in 3 layers and #1 Vicryl. The skin is stapled the patient's awake and returned recovery in good condition. Blood loss was approximately 500 mL 600 mL. The patient was placed in the hospital postoperatively.
[2021-01-28] MEDS ORDERED: ATORVASTATIN 40 MG TAB PO SCH (17:30)
[2021-01-28] MEDS: SODIUM CHLORIDE 0.45% 1,000 ML IV SCH ×2 (19:12→19:56)
[2021-01-28 19:46] LABS: Glucose,Whole Blood 171 mg/dL (75-99)
[2021-01-28] MEDS: SPIRONOLACTONE 25 MG TAB PO SCH (19:53)
[2021-01-28] MEDS: METOPROLOL SUCCINATE (ER) 50 MG TAB.ER.24H PO SCH (19:53)
[2021-01-28] MEDS: LOSARTAN 50 MG TAB PO SCH (19:54)
[2021-01-28] MEDS: FUROSEMIDE 40 MG TAB PO SCH (19:54)
[2021-01-28] MEDS: ATORVASTATIN 40 MG TAB PO SCH (19:54)
[2021-01-28] MEDS: metFORMIN 500 MG TAB PO SCH (19:54)
[2021-01-29] MEDS: SODIUM CHLORIDE 0.45% 1,000 ML IV SCH ×3 (05:20→23:20)
[2021-01-29] MEDS: LACTATED RINGERS 1,000 ML IV SCH ×2 (05:45)
--- NOTE | 2021-01-29 06:44 | P.PN ---
Progress Note - Text Patient without complaints and resting comfortably, slept through the night. Tolerating clears. Denies headache or weakness. Pain 9/10. Epidural was running at 8, bag currently empty, awaiting pharmacy to send new bag to the floor. Epidural site clean and dry. POD#1 s/p L radical nephrectomy Assessment and plan: will continue epidural
--- NOTE | 2021-01-29 06:51 | P.PN ---
Subjective Progress Note Date: 01/29/21 First postoperative day from a left radical nephrectomy. The patient is comfortable. His wound is dry. His abdomen was soft. His urine output is good. His vital signs are stable. I will have the patient up. I will decrease his IV fluids. I'll place him on a clear look a diet. Labs are pending. Objective - Vital Signs Vital signs: Vital Signs Temp 99.1 F 01/29/21 00:29 Pulse 83 01/29/21 00:29 Resp 15 01/29/21 00:29 BP 143/67 01/29/21 00:29 Pulse Ox 94 L 01/29/21 00:29 Intake & Output 01/28/21 01/28/21 01/29/21 06:59 18:59 06:59 Intake Total 2049 Output Total 800 800 Balance 1250 -800 Weight 76.2 kg 76.2 kg Intake: IV 2049 Output: Urine 300 800 Estimated Blood Loss 500 Other: Voiding Method Indwelling Catheter - Labs Labs: Abnormal Lab Results - Last 24 Hours (Table) 01/28/21 01/28/21 Range/Units 08:48 19:45 POC Glucose (mg/dL) 200 H 171 H (75-99) mg/dL
[2021-01-29 07:04] LABS: Glucose,Whole Blood 180 mg/dL (75-99)
[2021-01-29] MEDS: metFORMIN 500 MG TAB PO SCH ×2 (07:51→16:51)
[2021-01-29] MEDS: FUROSEMIDE 40 MG TAB PO SCH ×2 (07:52→16:50)
[2021-01-29 11:08] LABS: Basophils # (A) 0.02 X 10*3/uL (0.00-0.10); Basophils % (A) 0.2 %; Eosinophils # (A) 0.01 X 10*3/uL (0.04-0.35); Eosinophils % (A) 0.1 %; HCT 24.7 % (39.6-50.0); HGB 7.7 g/dL (13.0-17.0); Lymphocytes # (A) 0.88 X 10*3/uL (0.90-5.00); Lymphocytes % (A) 7.1 %; MCH 27.3 pg (27.0-32.0); MCHC 31.2 g/dL (32.0-37.0); MCV 87.6 fL (80.0-97.0); Mean Platelet Volume 9.5 fL (9.5-12.2); Monocytes # (A) 0.73 X 10*3/uL (0.20-1.00); Monocytes % (A) 5.9 %; Neutrophils # (A) 10.71 X 10*3/uL (1.80-7.70); Neutrophils % (A) 86.3 %; Platelet Count 306 X 10*3/uL (140-440); RBC 2.82 X 10*6/uL (4.40-5.60); RDW 16.9 % (11.5-14.5)
[2021-01-29 11:39] LABS: Glucose,Whole Blood 180 mg/dL (75-99)
[2021-01-29] MEDS ORDERED: KETOROLAC 15 MG/ML 1 ML VIAL IVP PRN (14:34)
[2021-01-29] MEDS: ONDANSETRON 4 MG/2 ML VIAL IVP PRN (16:09)
[2021-01-29 16:44] LABS: Glucose,Whole Blood 169 mg/dL (75-99)
[2021-01-29] MEDS: ATORVASTATIN 40 MG TAB PO SCH (16:50)
[2021-01-29] MEDS: SPIRONOLACTONE 25 MG TAB PO SCH (16:50)
[2021-01-29] MEDS: METOPROLOL SUCCINATE (ER) 50 MG TAB.ER.24H PO SCH (16:51)
[2021-01-29] MEDS: LOSARTAN 50 MG TAB PO SCH (16:51)
[2021-01-29 17:04] LABS: Hemoglobin A1C 7.7 % (4.0-6.0)
[2021-01-29 20:45] LABS: Glucose,Whole Blood 174 mg/dL (75-99)
[2021-01-30] MEDS: SODIUM CHLORIDE 0.45% 1,000 ML IV SCH (05:51)
[2021-01-30] MEDS: LACTATED RINGERS 1,000 ML IV SCH ×4 (05:52→20:01)
[2021-01-30 07:22] LABS: Glucose,Whole Blood 134 mg/dL (75-99)
[2021-01-30] MEDS: HYDROcodone/APAP 5-325MG 1 EACH TAB PO PRN ×4 (07:39→22:05)
[2021-01-30] MEDS: FUROSEMIDE 40 MG TAB PO SCH ×2 (07:39→17:24)
[2021-01-30] MEDS: metFORMIN 500 MG TAB PO SCH ×2 (07:39→17:24)
--- NOTE | 2021-01-30 07:43 | P.PN ---
Subjective Progress Note Date: 01/30/21 The patient and his second postoperative day from a left radical nephrectomy. He is doing well. His pain is controlled with [place]. He is tolerating liquids. His wound looks good. His vital signs are stable. His urine output adequate. He is voiding. I will discontinue his IV fluids. I'll advance him to a regular diet. He'll ambulate. If he feels well he'll be discharged home in the morning. Pathology is pending. Objective - Vital Signs Vital signs: Vital Signs Temp 98.2 F 01/30/21 07:28 Pulse 68 01/30/21 07:28 Resp 18 01/30/21 07:28 BP 156/71 01/30/21 07:28 Pulse Ox 97 01/30/21 07:28 Intake & Output 01/29/21 01/30/21 01/30/21 18:59 06:59 18:59 Intake Total 659.5 Output Total 1000 700 Balance -340.5 -700 Weight 76.4 kg Intake: Intake, IV Titration 59.5 Amount Ropivacaine 250 mg 59.5 Hydromorphone (Pf) 5 mg In Sodium Chloride 0.9% 200 ml @ Per Protocol EPIDURAL .Q0M PRN Rx#: [id number] Oral 600 Output: Urine 1000 700 Uretheral (Yo) 1000 Other: Voiding Method Indwelling Catheter - Labs CBC & Chem 7: 01/29/21 06:33 Labs: Abnormal Lab Results - Last 24 Hours (Table) 01/29/21 01/29/21 01/29/21 Range/Units 06:33 06:33 11:37 WBC 12.40 H (4.50-10.00) X 10*3/uL RBC 2.82 L (4.40-5.60) X 10*6/uL Hgb 7.7 L (13.0-17.0) g/dL Hct 24.7 L (39.6-50.0) % MCHC 31.2 L (32.0-37.0) g/dL RDW 16.9 H (11.5-14.5) % Immature Gran # 0.05 H (0.00-0.04) X 10*3/uL Neutrophils # 10.71 H (1.80-7.70) X 10*3/uL Lymphocytes # 0.88 L (0.90-5.00) X 10*3/uL Eosinophils # 0.01 L (0.04-0.35) X 10*3/uL POC Glucose (mg/dL) 180 H (75-99) mg/dL Hemoglobin A1c 7.7 H (4.0-6.0) % 01/29/21 01/29/21 01/30/21 Range/Units 16:43 20:43 06:50 WBC (4.50-10.00) X 10*3/uL RBC (4.40-5.60) X 10*6/uL Hgb (13.0-17.0) g/dL Hct (39.6-50.0) % MCHC (32.0-37.0) g/dL RDW (11.5-14.5) % Immature Gran # (0.00-0.04) X 10*3/uL Neutrophils # (1.80-7.70) X 10*3/uL Lymphocytes # (0.90-5.00) X 10*3/uL Eosinophils # (0.04-0.35) X 10*3/uL POC Glucose (mg/dL) 169 H 174 H 134 H (75-99) mg/dL Hemoglobin A1c (4.0-6.0) %
[2021-01-30 11:51] LABS: Glucose,Whole Blood 202 mg/dL (75-99)
[2021-01-30] MEDS: NICOTINE 21MG/24HR PATCH TRANSDERM SCH (12:22)
[2021-01-30 17:09] LABS: Glucose,Whole Blood 182 mg/dL (75-99)
[2021-01-30] MEDS: LOSARTAN 50 MG TAB PO SCH (17:24)
[2021-01-30] MEDS: ATORVASTATIN 40 MG TAB PO SCH (17:24)
[2021-01-30] MEDS: METOPROLOL SUCCINATE (ER) 50 MG TAB.ER.24H PO SCH (17:25)
[2021-01-30] MEDS: SPIRONOLACTONE 25 MG TAB PO SCH (17:26)
[2021-01-31] MEDS: ONDANSETRON 4 MG/2 ML VIAL IVP PRN (07:21)
[2021-01-31 07:46] VITALS: BP 152/76; PULSE 70; RESP 16; TEMP 97.8
[2021-01-31] MEDS: metFORMIN 500 MG TAB PO SCH (08:47)
[2021-01-31] MEDS: FUROSEMIDE 40 MG TAB PO SCH (08:47)
--- NOTE | 2021-01-31 09:50 | P.DS ---
Providers Date of admission: 01/28/21 08:06 Attending physician: Milind Marshall Primary care physician: [facility] Course: The patient was admitted to the hospital for a left radical nephrectomy. He underwent this 01/28/2021. Postoperative course was uneventful. His diet was advanced appropriately. His epidural fell out he's placed on oral medication which controlled his pain. Catheters removed he voided well. His wound is healing nicely. He is ready for discharge home in care of family regular diet limited activity. He'll be given a prescription of [place]. He'll follow-up in the office in one week for staple removal and path report. His condition is good postoperative instructions in the given. Patient Condition at Discharge: Good Plan - Discharge Summary Discharge Rx Participant: Yes New Discharge Prescriptions: New HYDROcodone/APAP 5-325MG [[place] 5-325] 1 tab PO Q4HR PRN #14 tab PRN Reason: Pain Control No Action Furosemide [Lasix] 40 mg PO BID@0900,1600 #60 tab metFORMIN HCL [Glucophage Xr] 500 mg PO W/SUPPER Losartan [Cozaar] 50 mg PO W/SUPPER Metoprolol Succinate (ER) [Toprol XL] 50 mg PO W/SUPPER Spironolactone [Aldactone] 12.5 mg PO W/SUPPER Atorvastatin [Lipitor] 40 mg PO W/SUPPER Aspirin 81 mg PO W/SUPPER Discharge Medication List Furosemide [Lasix] 40 mg PO BID@0900,1600 #60 tab 12/07/20 [Rx] Aspirin 81 mg PO W/SUPPER 01/12/21 [History] Atorvastatin [Lipitor] 40 mg PO W/SUPPER 01/12/21 [History] Losartan [Cozaar] 50 mg PO W/SUPPER 01/12/21 [History] Metoprolol Succinate (ER) [Toprol XL] 50 mg PO W/SUPPER 01/12/21 [History] Spironolactone [Aldactone] 12.5 mg PO W/SUPPER 01/12/21 [History] metFORMIN HCL [Glucophage Xr] 500 mg PO W/SUPPER 01/12/21 [History] HYDROcodone/APAP 5-325MG [[place] 5-325] 1 tab PO Q4HR PRN #14 tab 01/31/21 [Rx] Follow up Appointment(s)/Referral(s): Milind Marhsall MD [STAFF PHYSICIAN] - 1 Week Discharge Disposition: HOME SELF-CARE
[2021-01-31] MEDS: HYDROcodone/APAP 5-325MG 1 EACH TAB PO PRN (09:59)
[2021-01-31] MEDS: NICOTINE 21MG/24HR PATCH TRANSDERM SCH (10:44)
== END 2021-01-31 11:30 | disposition home or self-care (01) | DRG 657 ==
LOC: 2ORMAIN 01-28 08:06 → 4SSUR 01-28 18:34
PROVIDERS: ADMIT Urology; ATTEND Urology
PROC: 0TT10ZZ Resection of Left Kidney, Open Approach (ICD-10-PCS; principal; 2021-01-28 09:45)
PROC: 07BD0ZX Excision of Aortic Lymphatic, Open Approach, Diagnostic (ICD-10-PCS; principal; 2021-01-28 09:45)
PROC: 0TJB8ZZ Inspection of Bladder, Via Natural or Artificial Opening Endoscopic (ICD-10-PCS; principal; 2021-01-28 09:45)
DX: C64.2 Malignant neoplasm of left kidney, except renal pelvis (principal); I50.22 Chronic systolic (congestive) heart failure; I42.6 Alcoholic cardiomyopathy; I11.0 Hypertensive heart disease with heart failure; E11.9 Type 2 diabetes mellitus without complications; R31.0 Gross hematuria; I08.1 Rheumatic disorders of both mitral and tricuspid valves; F10.10 Alcohol abuse, uncomplicated; K21.9 Gastro-esophageal reflux disease without esophagitis; F17.210 Nicotine dependence, cigarettes, uncomplicated; Z79.84 Long term (current) use of oral hypoglycemic drugs; Z79.82 Long term (current) use of aspirin; Z79.899 Other long term (current) drug therapy; Z87.442 Personal history of urinary calculi; Z86.69 Personal history of other diseases of the nervous system and sense organs
CPT/HCPCS: 36415; 81001; 83036; 85025; 86850; 86900; 86901; 88305; 88307; 88341; 88342

== ENCOUNTER → 2021-01-26 | Outpatient (CLI) | payer BC ==
[2021-01-26 11:43] LABS: Appearance,Urine Clear (Clear); Bilirubin,Urine Negative (Negative); Blood,Urine Moderate (Negative); Color,Urine Yellow; Glucose,Urine (UA) Trace (Negative); Ketones,Urine Negative (Negative); Leukocyte Esterase,Urine Trace (Negative); Mucus,Urine Rare /hpf; Nitrite,Urine Negative (Negative); Protein,Urine 2+ (Negative); RBC,Urine 15 /hpf (0-5); Specific Gravity,Urine 1.014 (1.001-1.035); Urobilinogen,Urine <2.0 mg/dL (<2.0); WBC,Urine 16 /hpf (0-5)
== END | disposition home or self-care (01) ==
LOC: LABPAT 09:07
PROVIDERS: ATTEND Urology
DX: Z01.818 Encounter for other preprocedural examination (principal); E11.9 Type 2 diabetes mellitus without complications; D41.02 Neoplasm of uncertain behavior of left kidney; R31.29 Other microscopic hematuria
CPT/HCPCS: 81001

== ENCOUNTER → 2021-09-07 | Outpatient (CLI) | payer BC ==
--- NOTE | 2021-09-07 19:43 | CT ---
EXAMINATION TYPE: CT abdomen pelvis wo con DATE OF EXAM: 09/07/2021 COMPARISON: 12/23/2020. HISTORY: h/o renal CA, f/u CT DLP: 451.5 mGycm Automated exposure control for dose reduction was used. TECHNIQUE: Helical acquisition of images was performed from the lung bases through the pelvis. FINDINGS: LUNG BASES: No significant abnormality is appreciated. LIVER/GB: No significant abnormality is appreciated. PANCREAS: No significant abnormality is seen. SPLEEN: No significant abnormality is seen. ADRENALS: No significant abnormality is seen. KIDNEYS: Interval left nephrectomy. No evidence of recurrent lesion. No right hydronephrosis or nephr olithiasis. FREE AIR: No free air is visualized RETROPERITONEAL ADENOPATHY: None visualized REPRODUCTIVE ORGANS: No significant abnormality is seen URINARY BLADDER: No significant abnormality is seen. PELVIC ADENOPATHY: None visualized. OSSEOUS STRUCTURES: No significant abnormality is seen. BOWEL: Small hiatal hernia. Nonspecific short segment mild narrowing of proximal sigmoid colon bowel loop. No bowel obstruction. No free fluid. OTHER: None IMPRESSION: INTERVAL LEFT NEPHRECTOMY. NONSPECIFIC SHORT SEGMENT NARROWING OF THE PROXIMAL SIGMOID COLON. FINDINGS MAY RELATE TO COLLAPSED B OWEL LOOP. COLONOSCOPY CORRELATION MAY BE OBTAINED CLINICALLY INDICATED. OTHERWISE NO EVIDENCE OF RECURRENT OR METASTATIC DISEASE.
--- NOTE | 2021-09-08 08:19 | XR ---
EXAMINATION TYPE: XR chest 2V DATE OF EXAM: 09/07/2021 COMPARISON: 12/06/2020 HISTORY: 56-year-old male renal cancer TECHNIQUE: Frontal and lateral views FINDINGS: The cardiomediastinal silhouette, aorta, and pulmonary vasculature are within normal limits. Mild hyp erinflation. Otherwise, lungs and pleural spaces are clear. IMPRESSION: Hyperinflation may relate to depth of inspiration or underlying emphysema. Otherwise, no acute proces s seen.
== END | disposition home or self-care (01) ==
LOC: RADCTMAIN 16:10
PROVIDERS: ATTEND Urology
DX: R91.8 Other nonspecific abnormal finding of lung field (principal); Z85.528 Personal history of other malignant neoplasm of kidney; Z90.5 Acquired absence of kidney
CPT/HCPCS: 71046; 74176